=== PATIENT | male | born 1980 | race Caucasian/White ===

== ENCOUNTER → 2016-08-25 | Outpatient (REF) ==
[~2016-08-25] MED LIST: NO HOME MEDICATIONS; NORCO 325 MG-51 TAB PO
== END ==
LOC: WSOH 10:21
DX: Z02.89 Encounter for other administrative examinations (principal)

== ENCOUNTER 2019-01-24 08:59 | Outpatient (RCR) | payer OTHER | END 2019-01-25 11:16 | disposition home or self-care (01) | LOC: WSOH 08:59 | DX: S39.012A Strain of muscle, fascia and tendon of lower back, initial encounter (principal); X50.3XXA Overexertion from repetitive movements, initial encounter; Y92.59 Other trade areas as the place of occurrence of the external cause; Y93.89 Activity, other specified; Y99.0 Civilian activity done for income or pay; M54.5 Low back pain ==

== ENCOUNTER → 2024-03-11 | Outpatient (CLI) | payer OTHER | LOC: COL.RAD 11:40 | DX: N50.89 Other specified disorders of the male genital organs (principal) ==